=== PATIENT | male | born 1945 | race African-American/Black ===

== ENCOUNTER 2021-02-10 13:14 | Inpatient (IN) ==
[2021-02-11] MEDS: *HR* OxyCODONE Immed Rel 5 MG TABLET PO PRN ×2 (15:07→21:58)
[2021-02-11] MEDS: Gabapentin 300 MG CAPSULE PO SCH ×2 (15:07→21:48)
[2021-02-11] MEDS: *HR* Metformin 500 MG TABLET PO SCH (17:20)
[2021-02-11] MEDS: traZODone 50 MG TABLET PO SCH (21:47)
[2021-02-12] MEDS: *HR* OxyCODONE Immed Rel 5 MG TABLET PO PRN ×2 (05:10→17:15)
[2021-02-12] MEDS: *HR* Enoxaparin 40 MG/0.4 ML SYRINGE SQ SCH (05:11)
[2021-02-12 05:47] LABS: Basophils # 0.1 K/mcL (0.0-0.2); Basophils % 0.3 %; Eosinophils # 0.2 K/mcL (0.0-0.6); Hematocrit 34.1 % (37.5-50.1); Hemoglobin 11.4 g/dL (12.9-16.9); Lymphocytes # 3.2 K/mcL (0.6-4.6); Lymphocytes % 21.6 %; Mean Corpuscular HGB Conc 33.4 g/dL (31.6-35.5); Mean Corpuscular Hemoglobin 30.9 pg (28.0-33.3); Mean Corpuscular Volume 92.4 fL (83.0-100.0); Mean Platelet Volume 10.1 fL (9.4-12.4); Monocytes # 1.8 K/mcL (0.0-1.3); Monocytes % 11.8 %; Platelet Count 314 K/mcL (140-400); Red Blood Count 3.69 M/mcL (4.19-5.50); Red Cell Distribution Width 13.9 % (11.5-14.5); Segmented Neutrophils % 64.3 %
[2021-02-12 06:07] LABS: Neutrophils # 9.7 K/mcL (1.6-8.9)
[2021-02-12 06:19] LABS: BUN/Creatinine Ratio 15 (6-26); Blood Urea Nitrogen 18 mg/dL (8-23); Calcium 8.9 mg/dL (8.6-10.3); Carbon Dioxide 30 mEq/L (23-29); Chloride 100 mEq/L (98-107); Glucose 96 mg/dL (70-105); Osmolality,Calculated 288 (280-300); Potassium 3.5 mEq/L (3.5-5.1); Sodium 138 mEq/L (136-145); eGFR For African Americans > 60 (> 60); eGFR For Non-African Americans > 60 (> 60)
[2021-02-12] MEDS: Multivit/Ca/Min/Fe/FA 1 TAB TABLET PO SCH (09:12)
[2021-02-12] MEDS: Loratadine 10 MG TABLET PO SCH (09:12)
[2021-02-12] MEDS: Gabapentin 300 MG CAPSULE PO SCH ×3 (09:12→20:36)
[2021-02-12] MEDS: Celecoxib 100 MG CAPSULE PO SCH (09:12)
[2021-02-12] MEDS: predniSONE 20 MG TABLET PO SCH (09:13)
[2021-02-12] MEDS: *HR* Metformin 500 MG TABLET PO SCH ×2 (09:13→17:10)
[2021-02-12] MEDS: Cyanocobalamin (B-12) 1,000 MCG TABLET PO SCH (09:13)
[2021-02-12] MEDS: amLODIPine 5 MG TABLET PO SCH (09:13)
[2021-02-12] MEDS: traZODone 50 MG TABLET PO SCH (20:36)
[2021-02-13] MEDS: *HR* OxyCODONE Immed Rel 5 MG TABLET PO PRN ×4 (02:38→22:14)
[2021-02-13] MEDS: *HR* Enoxaparin 40 MG/0.4 ML SYRINGE SQ SCH (05:20)
[2021-02-13] MEDS: Celecoxib 100 MG CAPSULE PO SCH (09:36)
[2021-02-13] MEDS: Loratadine 10 MG TABLET PO SCH (09:36)
[2021-02-13] MEDS: Gabapentin 300 MG CAPSULE PO SCH ×3 (09:36→20:43)
[2021-02-13] MEDS: amLODIPine 5 MG TABLET PO SCH (09:36)
[2021-02-13] MEDS: predniSONE 20 MG TABLET PO SCH (09:36)
[2021-02-13] MEDS: Multivit/Ca/Min/Fe/FA 1 TAB TABLET PO SCH (09:37)
[2021-02-13] MEDS: *HR* Metformin 500 MG TABLET PO SCH ×2 (09:37→16:07)
[2021-02-13] MEDS: Cyanocobalamin (B-12) 1,000 MCG TABLET PO SCH (09:37)
[2021-02-13] MEDS: traZODone 50 MG TABLET PO SCH (20:42)
[2021-02-14] MEDS: *HR* OxyCODONE Immed Rel 5 MG TABLET PO PRN ×2 (05:44→20:17)
[2021-02-14] MEDS: *HR* Enoxaparin 40 MG/0.4 ML SYRINGE SQ SCH (05:45)
[2021-02-14] MEDS: Celecoxib 100 MG CAPSULE PO SCH (09:06)
[2021-02-14] MEDS: *HR* Metformin 500 MG TABLET PO SCH ×2 (09:07→16:43)
[2021-02-14] MEDS: Gabapentin 300 MG CAPSULE PO SCH ×3 (09:07→20:17)
[2021-02-14] MEDS: amLODIPine 5 MG TABLET PO SCH (09:07)
[2021-02-14] MEDS: Cyanocobalamin (B-12) 1,000 MCG TABLET PO SCH (09:07)
[2021-02-14] MEDS: Loratadine 10 MG TABLET PO SCH (09:07)
[2021-02-14] MEDS: Multivit/Ca/Min/Fe/FA 1 TAB TABLET PO SCH (09:07)
[2021-02-14] MEDS: traZODone 50 MG TABLET PO SCH (20:16)
[2021-02-15] MEDS: *HR* OxyCODONE Immed Rel 5 MG TABLET PO PRN (03:56)
[2021-02-15] MEDS: *HR* Enoxaparin 40 MG/0.4 ML SYRINGE SQ SCH (05:53)
[2021-02-15 06:50] VITALS: BP 127/77; PULSE 100; RESP 20; TEMP 97.9; O2SAT 92
[2021-02-15] MEDS: Celecoxib 100 MG CAPSULE PO SCH (10:02)
[2021-02-15] MEDS: Gabapentin 300 MG CAPSULE PO SCH (10:02)
[2021-02-15] MEDS: amLODIPine 5 MG TABLET PO SCH (10:02)
[2021-02-15] MEDS: *HR* Metformin 500 MG TABLET PO SCH (10:07)
[2021-02-15] MEDS: Multivit/Ca/Min/Fe/FA 1 TAB TABLET PO SCH (10:07)
[2021-02-15] MEDS: Cyanocobalamin (B-12) 1,000 MCG TABLET PO SCH (10:07)
[2021-02-15] MEDS: Loratadine 10 MG TABLET PO SCH (10:08)
== END 2021-02-15 12:15 | disposition home health service (06) ==
LOC: INPPIK 02-11 14:41
PROVIDERS: ADMIT Family Medicine; ATTEND Family Medicine